=== PATIENT | male | born 1965 | race Caucasian/White ===

== ENCOUNTER 2019-08-14 14:15 | Emergency (ER) | payer BC, SELFPAY ==
[2019-08-14 14:30] VITALS: BP 99/87; PULSE 89; RESP 16; TEMP 37; O2SAT 98
--- NOTE | 2019-08-14 14:30 | ED.GENADULT ---
HPI - General Adult General Chief complaint: Dental/Oral Stated complaint: Swelling on face Time Seen by Provider: 08/14/19 14:30 Source: patient and RN notes reviewed History of Present Illness HPI narrative: Patient is a 53-year-old male that presents the urgent care with complaints of right lower jaw swelling. Patient states that it started last night and it worsened this morning. Patient states that he does have some pain and tenderness to the lower right jaw. Also reports of poor dental hygiene. Denies any fever, chills, nausea, vomiting. Does not take anything [id number] for his symptoms. No other acute complaints. No acute distress noted. Patient had a plan of care. Related Data Home Medications Medication Instructions Recorded Confirmed aspirin 81 mg PO DAILY 08/14/19 08/14/19 carvedilol 6.25 mg PO DAILY 08/14/19 08/14/19 clopidogrel 75 mg PO DAILY 08/14/19 08/14/19 lisinopril 10 mg PO DAILY 08/14/19 08/14/19 Allergies Allergy/AdvReac Type Severity Reaction Status Date / Time No Known Allergies Allergy Unverified 01/14/19 14:27 Review of Systems Review of Systems: Narrative: CONSTITUTIONAL: Denies fever, chills, or sweats. EYES: Denies visual changes, redness, or discharge. ENT: Reports of lower right jaw pain and facial swelling. Denies rhinorrhea, congestion, sore throat, or otalgia. CARDIOVASCULAR: Denies chest pain, palpitations, or edema. RESPIRATORY: Denies cough or dyspnea. GASTROINTESTINAL: Denies abdominal pain, nausea, vomiting, or diarrhea. GENITOURINARY: Denies dysuria or hematuria. SKIN: Denies rash or itching. MUSCULOSKELETAL: Denies back pain, joint pain, or myalgia. NEUROLOGIC: Denies headache, numbness, or weakness. PMFSH Comments At the time of my signature, I reviewed and agree with the nursing past medical, surgical, social, and family history. There is no relevant family history pertinent to the patient complaint. Exam Narrative: Exam Narrative: GENERAL: This is a well-nourished, well-developed patient, in no apparent distress. HEAD: normocephalic, atraumatic. EYES: PERRL. Sclera clear/white. Vision is grossly intact. EARS: External ears normal NOSE: External nose normal with no obvious nasal discharge THROAT: Mucous membranes moist, posterior pharynx clear. MOUTH: Oral right quadrant with moderate erythema and mild edema throughout, poor dentition, multiple teeth avulsed at the gumline. Notable right lower facial swelling NECK: Neck supple CARDIOVASCULAR: Regular rate and rhythm without murmurs, gallops, or rubs. RESPIRATORY: Clear to auscultation. Breath sounds equal bilaterally. No wheezes, rales, or rhonchi. SKIN: warm, intact with no suspicious lesions or rash, good texture and turgor. NEURO: awake, alert, and oriented to person, place and time. There were no obvious focal neurologic abnormalities. EXTREMITIES: No clubbing, cyanosis, or edema. Course Vital Signs Vital signs: Vital Signs Temperature 98.6 F 08/14/19 14:30 Pulse Rate 89 08/14/19 14:30 Respiratory Rate 16 08/14/19 14:30 Blood Pressure 99/87 L 08/14/19 14:30 Pulse Oximetry 98 08/14/19 14:30 Temperature 98.6 F 08/14/19 14:30 Pulse Rate 89 08/14/19 14:30 Respiratory Rate 16 08/14/19 14:30 Blood Pressure 99/87 L 08/14/19 14:30 Pulse Oximetry 98 08/14/19 14:30 Reviewed Medical Decision Making MDM Narrative Medical decision making narrative: Advised patient to complete steroid as prescribed. Complete antibiotic as prescribed. Make sure to eat and drink with medication. Use Tylenol/ibuprofen as needed for pain. If you develop any increase in swelling associated with fever?go to the emergency room. Follow-up with PCP and dentist within 1 week for reevaluation. Differential Diagnosis Differential Diagnosis: Gingivitis, periodontal disease, dental abscess Vital Signs Vital Signs: Vital Signs Temperature 98.6 F 08/14/19 14:30 Pulse Rate 89 08/14/19 14:30 R
== END 2019-08-14 14:43 | disposition home or self-care (01) ==
PROVIDERS: Emergency Provider Nurse Practitioner Family; PCP Nurse Practitioner Family
DX: K04.7 Periapical abscess without sinus (principal); A69.1 Other Vincent's infections; I25.10 Atherosclerotic heart disease of native coronary artery without angina pectoris; Z95.5 Presence of coronary angioplasty implant and graft; I10 Essential (primary) hypertension
CPT/HCPCS: 99213; G0463

== ENCOUNTER 2020-02-13 20:34 | Emergency (ER) | payer BC, SELFPAY ==
[2020-02-13 20:43] VITALS: BP 143/97; PULSE 126; RESP 18; TEMP 36.8; O2SAT 98
--- NOTE | 2020-02-13 20:52 | PC.NURSE ---
pt states he had fistula placed today at [facility]. pt states his arm was put in a sling. pt was sitting on couch this evening when he noticed his sling was saturated. tourniquet applied upon arrival, MD to bedside.
--- NOTE | 2020-02-13 20:56 | ED.GENADULT ---
HPI - General Adult General Chief complaint: Wound/Laceration Stated complaint: incision bleeding Related Data Home Medications Medication Instructions Recorded Confirmed aspirin 81 mg PO DAILY 08/14/19 08/14/19 carvedilol 6.25 mg PO DAILY 08/14/19 08/14/19 clopidogrel 75 mg PO DAILY 08/14/19 08/14/19 lisinopril 10 mg PO DAILY 08/14/19 08/14/19 Allergies Allergy/AdvReac Type Severity Reaction Status Date / Time No Known Allergies Allergy Unverified 01/14/19 14:27 Course Vital Signs Vital signs: Vital Signs Temperature 36.8 C 02/13/20 20:43 Pulse Rate 126 H 02/13/20 20:43 Respiratory Rate 18 02/13/20 20:43 Blood Pressure 143/97 H 02/13/20 20:43 Pulse Oximetry 98 02/13/20 20:43 Temperature 36.8 C 02/13/20 20:43 Pulse Rate 126 H 02/13/20 20:43 Respiratory Rate 18 02/13/20 20:43 Blood Pressure 143/97 H 02/13/20 20:43 Pulse Oximetry 98 02/13/20 20:43 Medical Decision Making Vital Signs Vital Signs: Vital Signs Temperature 36.8 C 02/13/20 20:43 Pulse Rate 126 H 02/13/20 20:43 Respiratory Rate 18 02/13/20 20:43 Blood Pressure 143/97 H 02/13/20 20:43 Pulse Oximetry 98 02/13/20 20:43 Temperature 36.8 C 02/13/20 20:43 Pulse Rate 126 H 02/13/20 20:43 Respiratory Rate 18 02/13/20 20:43 Blood Pressure 143/97 H 02/13/20 20:43 Pulse Oximetry 98 02/13/20 20:43 Discharge Plan Discharge Prescriptions: No Action carvedilol 6.25 mg tablet 6.25 mg PO DAILY RF: 0 clopidogrel 75 mg tablet 75 mg PO DAILY RF: 0 lisinopril 10 mg tablet 10 mg PO DAILY RF: 0 aspirin 81 mg tablet,chewable 81 mg PO DAILY RF: 0 methylprednisolone [Medrol (Micheal)] 4 mg tablets,dose pack See Rx Instructions .ROUTE .COMPLEX Qty: 21 RF: 0 amoxicillin-pot clavulanate [Augmentin] 875-125 mg tablet 1 tablet PO Q12H Qty: 20 RF: 0
[2020-02-13 21:00] VITALS: BP 158/99; PULSE 93; RESP 18; O2SAT 97
--- NOTE | 2020-02-13 21:13 | ED.WOUNDLAC ---
HPI - Wound/Laceration General Chief Complaint: Wound/Laceration Stated Complaint: incision bleeding Time Seen by Provider: 02/13/20 20:56 Source: patient Mode of arrival: ambulatory Limitations: no limitations History of Present Illness HPI narrative: This patient is a 54 year old male with history of AR s/p stent, Chronic renal disease who presents for evaluation of postoperative bleeding. PAtient reports he had an left arm AV fistula created at [facility] by Dr. Hodge . Patient states he was doing fine and then just prior to arrival he noticed blood pooling from his bandage on his left arm. He states he takes plavix for history of stents but he has not taken his medication since Monday. He denies history of anemia, dizziness, lightheaded or sob. He reports mild pain at site of pressure to left arm 08/26 Related Data Home Medications Medication Instructions Recorded Confirmed aspirin 81 mg PO DAILY 08/14/19 08/14/19 carvedilol 6.25 mg PO DAILY 08/14/19 08/14/19 clopidogrel 75 mg PO DAILY 08/14/19 08/14/19 lisinopril 10 mg PO DAILY 08/14/19 08/14/19 Allergies Allergy/AdvReac Type Severity Reaction Status Date / Time No Known Allergies Allergy Verified 02/13/20 21:24 Review of Systems Review of Systems: All systems reviewed & are unremarkable except as noted in HPI and below Constitutional: Constitutional: Denies chills and Denies fever(s) ENT: Denies dizziness Cardiovascular: Cardiovascular: Denies chest pain Respiratory: Respiratory: Denies cough and Denies dyspnea [facility] Past Medical History Medical History (Updated 02/14/20 @ 03:27 by Rhea Cisneros MD) Chronic kidney disease History of heart attack Surgical History Surgical History (Updated 02/14/20 @ 03:27 by Rhea Cisneros MD) History of coronary artery stent placement Social History Social History (Updated 02/14/20 @ 07:00 by Rhea Cisneros MD) Smoking status: Current every day smoker Substance use type: marijuana Exam Const: General: no acute distress and alert Orientation/consciousness: patient oriented x3 HENMT: Head: normocephalic and atraumatic Face and sinus: face symmetric Throat: posterior oropharynx normal and uvula midline Chest: Chest palpation & inspection: normal inspection of the chest Resp: Effort & Inspection: normal respiratory effort and no retractions Auscultation: clear to auscultation bilaterally Cardio: Rate: regular rate Rhythm: regular rhythm GI: GI Palp: Yes Soft to palpation, No Tenderness to palpation present (GI) and No Guarding due to palpation present (GI) Neuro: General: patient oriented x3 and moves all extremities Extrem: Other: Left arm with incision covered in blood soaked steristrips, bright red blood pouring out of mid incision with tenderness at incision site, some fullness around incision. strong palpable left radial pulse Psych: Mental Status: mental status grossly normal Affect: normal affect Course Reevaluation(s) Reevaluation #1: Patient's incision is no longer bleeding. He is complaining of pain at incision and numbness to his hand. There is ecchymosis at around incision and fullness Date: 02/13/20 Time: 23:00 Reevaluation #2: Patient reports he is able to move his hand without difficulty and his numbness in his hand is improving Date: 02/13/20 Time: 23:30 Reevaluation #3: PAtient reports his numbness is gone and he has full movement of his head. He still continues to have no bleeding. He is stable for discharge. He will follow up with Dr. Hodge Date: 02/14/20 Time: 03:21 Consultations Consultation #1: I spoke to Dr. Hodge, squeeze all blood out, apply dry and cris bandage Date: 02/13/20 Time: 21:13 Consultation #2: I spoke with Dr. Hodge who states patient should keep arm elevated and apply ice. His symptoms should improve and it is not compartment syndrome. Date: 02/13/20 Time: 23:26 Vital Signs Vital signs: Vital Signs Temperature 98.
[2020-02-13 21:14] LABS: Basophils Percent Auto 0.2 % (0.2-1.2); Hematocrit 39.9 % (42.0-52.0); Hemoglobin 13.4 g/dL (14.0-18.0); Immature Granulocyte Absolute 0.07 K/mm3 (0.00-0.031); Immature Granulocyte Percent A 0.6 % (0-0.5); Lymphocytes Absolute Auto 0.74 K/mm3 (0.9-3.2); Lymphocytes Percent Auto 6.1 % (18.3-44.2); Mean Corpuscular HGB Conc 33.6 g/dl (32-36); Mean Corpuscular Hemoglobin 29.5 pg (26-34); Mean Corpuscular Volume 87.7 fl (80-100); Mean Platelet Volume 10.4 fl (7.4-10.4); Monocytes Absolute Auto 0.3 K/mm3 (0.1-0.6); Monocytes Percent Auto 2.5 % (2.6-8.5); Neutrophils Absolute Auto 11.1 K/mm3 (1.3-6.7); Neutrophils Percent Auto 90.6 % (45.5-73.1); Platelet Count Result 241 k/mm3 (150-375); Red Blood Count 4.55 M/mm3 (4.6-6.20); Red Cell Distribution Width 14.6 % (11.5-14.5); White Blood Count 12.2 K/mm3 (4.5-10.0)
[2020-02-13 21:23] LABS: Prothrombin Time 13.3 Seconds (11.1-14.7)
[2020-02-13 21:26] LABS: Alanine Aminotransferase 13 U/L (4-50); Albumin Level 4.1 g/dL (3.5-5.1); Alkaline Phosphatase 98 U/L (38-126); Anion Gap 15.2 mmol/L (7-16); Aspartate Amino Transferase 19 U/L (17-59); Bilirubin,Total 0.3 mg/dL (0.2-1.3); Blood Urea Nitrogen 40 mg/dL (9-20); Calcium 9.1 mg/dL (8.4-10.2); Carbon Dioxide 15 mmol/L (22-30); Chloride 110 mmol/L (98-107); Estimated CRCL calculation 16 ml/min; Estimated Glomerular Filt Rate 13; Glucose 160 mg/dL (75-110); Potassium 5.2 mmol/L (3.4-5.0); Sodium 135 mmol/L (137-145)
[2020-02-13 21:41] VITALS: BP 120/88; PULSE 74; RESP 18; O2SAT 98
--- NOTE | 2020-02-13 21:59 | PC.NURSE ---
bleeding controlled, extremity elevated. pt denies dizziness. pt remains hooked up to monitor, dressing in place. will continue to monitor pt for baseline status changes.
--- NOTE | 2020-02-13 22:10 | PC.NURSE ---
pt's daughter called at this time-updated on pt care per pt request. all questions/concerns addressed.
[2020-02-13] MEDS: oxyCODONE/ACETAMINOPHEN 5-325 MG TABLET 1 TABLET PO (23:11)
[2020-02-13] MEDS: ONDANSETRON HCL ODT 4 MG TABLET PO (23:11)
--- NOTE | 2020-02-13 23:13 | PC.NURSE ---
ERP at bedside at this time.
--- NOTE | 2020-02-13 23:42 | PC.NURSE ---
ice applied at this time. pt continues to rest on stretcher, denies needs/concerns.
[2020-02-13 23:46] VITALS: BP 154/101; PULSE 103; RESP 17; O2SAT 98
[2020-02-14 00:59] VITALS: BP 135/97; PULSE 77; RESP 18; O2SAT 98
[2020-02-14 03:45] VITALS: BP 134/94; PULSE 88; RESP 17; O2SAT 99
== END 2020-02-14 03:47 | disposition home or self-care (01) ==
PROVIDERS: Emergency Provider General Practice; PCP Nurse Practitioner Family
DX: T82.838A Hemorrhage due to vascular prosthetic devices, implants and grafts, initial encounter (principal); N18.6 End stage renal disease; Z99.2 Dependence on renal dialysis; I25.2 Old myocardial infarction; Z95.5 Presence of coronary angioplasty implant and graft; F17.200 Nicotine dependence, unspecified, uncomplicated; Z79.82 Long term (current) use of aspirin; Z79.02 Long term (current) use of antithrombotics/antiplatelets
CPT/HCPCS: 36415; 80053; 85025; 85610; 85730; 99283; A9270